=== PATIENT | male | born 1940 | race Caucasian/White ===

== ENCOUNTER 2017-02-24 14:15 | Day surgery (SDC) | payer MEDICARE ==
[~2017-02-24] VITALS: Ht 172.7 cm; Wt 88.2 kg
[~2017-02-24 14:15] MED LIST: ALLO300T2 PO; CHOL400C9 PO; CLOTRIMAZOLE TOP; ESCI20TA PO; HYDR-656 PO; KLO1T PO; KLO5T PO; LACT1CAP65 PO; MULT-36 PO; OMEP-113 PO; OXYC10TA8 PO; POTA-17 PO; SILD100T PO; SIMV20TA4 PO; TRAZ-118 PO; VALC TOP; [UNRECOGNIZED DRUG - CODE] PO
[2017-02-24 15:00] VITALS: BP 138/76; PULSE 64; RESP 16; O2SAT 94
[2017-02-24] MEDS ORDERED: ALPR0.5T8 PO (15:02)
--- NOTE | 2017-02-24 18:24 | NUR ---
Phlebotomy Patient arrived to unit with oxygen at 2L/nc. Labs drawn. HCT 30.1. Orders do not indicate phlebotomy. Patient left unit. Offered to call MD to update, patient declined.
[2017-04-13] MEDS ORDERED: vitamin d3 PO (15:20)
[2017-04-13] MEDS ORDERED: HYDR2TAB27 PO (15:20)
== END 2017-02-24 23:59 | disposition home or self-care (01) ==
LOC: MOCO 14:15
DX: E83.118 Other hemochromatosis (principal)

== ENCOUNTER 2017-05-13 15:00 | Inpatient (IN) | payer MEDICARE ==
[~2017-05-13] VITALS: Ht 172.7 cm; Wt 86.4 kg
[~2017-05-13 15:00] MED LIST changes: +ALPR0.5T8 PO; +CHOL10008 PO; -CHOL400C9 PO; -CLOTRIMAZOLE TOP; -HYDR-656 PO; +HYDR2TAB27 PO; -KLO5T PO; -LACT1CAP65 PO; -MULT-36 PO; +MULT-666 PO; -OMEP-113 PO; +OMEP20CA11 PO; -POTA-17 PO; -SILD100T PO; -VALC TOP; -[UNRECOGNIZED DRUG - CODE] PO; +vitamin d3 PO
[2017-05-13 15:12] VITALS: BP 131/63; PULSE 104; RESP 15; O2SAT 93
[2017-05-13] MEDS ORDERED: ASPI-973 PO (15:26)
--- NOTE | 2017-05-13 15:29 | ED.REPORT ---
HPI-Dyspnea / Wheezing Date of Service May 13, 2017 ED Provider: Tc Celis MD The patient is a 77 year old male w/ a hx of pulmonary fibrosis, anemia, and hemochromatosis who presents to the ED due to progressively worsening SOB for the past 3-4 days. Associated symptoms include a "thick" productive cough and intermittent, 5/10, right chest "aching" which he has never had before. He states he feels his lungs are "aching." He is slightly sob while at rest which increases with physical exertion. His reports that he was extremely short of breath after taking the trash out. Pt uses home oxygen 2 liters, saturation has been in the low 70's for the past few day. Pt denies hx of heart disease or heart failure, fever, black/bloody stool, and hematochezia. He has slept sitting up for the past few years. Dr. Shruthi Mendenhall at is his payroll consultant. He takes Aspirin every night. The patient has about 5 drinks of alcohol per day and has not gone for an extended period of time without drinking for quite some time. Nursing Notes Stated Complaint: COUGH, SOB Chief Complaint: Respiratory Complaints Nursing Notes Reviewed: Yes Allergies: Coded Allergies: meperidine (Verified Allergy, Severe, ITCHING, 05/13/17) zolpidem tartrate (Verified Allergy, Severe, goes bezerk, 05/13/17) Scheduled Allopurinol (Allopurinol) 300 Mg Tablet 300 MG PO DAILY Aspirin (Aspirin) 81 Mg Tablet 81 MG PO DAILY Cholecalciferol (Vitamin D3) (Vitamin D3) 1,000 Unit Tab.chew 1,000 UNIT PO DAILY Clonazepam (Clonazepam) 1 Mg Tab 1 MG PO DAILY Escitalopram Oxalate (Lexapro) 20 Mg Tablet 20 MG PO DAILY Multivitamin (Once Daily) 1 Each Tablet 1 EACH PO DAILY Omeprazole (Omeprazole) 20 Mg Capsule.dr 20 MG PO BID Potassium Citrate ER (Potassium Citrate ER) 10 Meq Tablet 10 MEQ PO BID Simvastatin (Simvastatin) 20 Mg Tablet 20 MG PO HS Trazodone (Trazodone) 100 Mg Tablet 300 MG PO QHSPRN Scheduled PRN Alprazolam (Alprazolam) 0.5 Mg Tablet 0.5-1 MG PO BID PRN PRN spasms Hydromorphone (Dilaudid) 2 Mg Tablet 2 MG PO DIRECTED PRN PRN Pain oxyCODONE-Acetaminophen 5-325 mg (oxyCODONE-Acetaminophen 5-325 mg) 1 Each Tablet 1 TAB PO Q6H PRN PRN For Pain General Time Seen by MD: 15:28 Chief Complaint Shortness of breath Hx Obtained From: Patient Arrived By: Walk-in Sudden in Onset?: Yes Onset Occurred: 3 days ago Symptom Duration: Since onset Location: : Chest right Quality: Aching Severity: Current: Mild Associated with: Reports: Cough Recent Healthcare: Recent doctor visit Similar Sx Previous: Yes Past Medical History Past Medical History Notes: Patient had high resolution chest CT yesterday 04/17/2015 with suspected pulmonary fibrosis Patient had normal testicle ultrasound on 04/16/2015 Past Medical History hereditary hemocrhomatosis pulmonary fibrosis anemia neophrolithiasis hyperlipidemia COPD History of cluster headaches GERD Kidney stone Anxiety Chronic back pain Colitis hiatus hernia rectus diastasis ischial bursitis medial epicondylitis Past Surgical History EGD 04/12/2015 normal Vasectomy Right toe Appendectomy Colonoscopy kidney stone removal Smoking History Former Smoker Social History Meniscectomy Kidney stone referral Appendectomy Right toe surgery Alcohol Use: >5 per day Other Social History: Good social support, , Local resident Ambulatory Status Independent Review of Systems Constitutional: Reports: Chills, Denies: Fever Respiratory: Reports: Prod cough, clear, Shortness of breath Cardiovascular: Reports: Chest pain ("aching") Complete sys rev & neg: except as marked. GI: Denies: Bloody/tarry stool, Hematochezia Physical Exam Initial Vital Signs Vital Signs (First) Date Time Temp Pulse Resp B/P Pulse Ox O2 Delivery O2 Flow Rate FiO2 05/13/17 15:12 37.0 104 15 131/63 93 Room Air 05/13/17 16:07 2 Initial VS: Reviewed General/Constitutional: Awake, Alert, Cooperative, Not toxic appearing Neck: Atraumatic, Supple Respiratory / Chest: Breath sounds = bilat scattered crackles at the bases Cardiovascular: Heart rate NL, Regular rhythm, Heart sounds NL, No gallop, No murmurs, No rubs Abdomen: Atraumatic, Soft, Non-tender Lower Extremity / Pelvis / MS: Atraumatic, Inspection NL, Full range of motion , No deformity Skin: Atraumatic, Warm, Dry Neurologic: Oriented X3, Speech NL, No motor deficits Upper Extremity / MS: Atraumatic, Inspection NL, Full range of motion, No deformity Interpretation & Diagnostics Lab Results Interpretation Result Diagram: 05/13/17 1555 05/13/17 1555 Test 05/13/17 15:55 05/13/17 17:44 05/13/17 19:03 White Blood Count 6.0th/mm3 (3.8-10.1) Red Blood Count 2.51mil/mm3 (4.40-5.80) Hemoglobin 9.9g/dL (13.8-17.2) Hematocrit 30.1% (41.0-50.0) Mean Corpuscular Volume 119.9fL (81-100) Mean Corpuscular Hemoglobin 39.4pg (27.0-35.0) Mean Corpuscular Hemoglobin Concent 32.9% (32.0-37.0) Red Cell Distribution Width 15.1% (12.3-15.4) Platelet Count 237bil/L (150-400) Neutrophils (%) (Auto) 63.1% (40-74) Lymphocytes (%) (Auto) 19.7% (14-46) Monocytes (%) (Auto) 11.2% (4-12) Eosinophils (%) (Auto) 5.0% (0-5) Basophils (%) (Auto) 0.7% (0-3) Sodium Level 139mEq/L (134-144) Potassium Level 4.5mEq/L (3.5-5.2) Chloride Level 102mEq/L (97-108) Carbon Dioxide Level 24mmol/L (18-29) Blood Urea Nitrogen 15mg/dL (8-27) Creatinine 1.16mg/dL (0.76-1.27) Estimat Glomerular Filtration Rate 65mL/min (>59) Glucose Level 121mg/dL (60-99) Calcium Level 8.7mg/dL (8.5-10.1) Total Bilirubin 0.5mg/dL (0.0-1.2) Aspartate Amino Transf (AST/SGOT) 34U/L (0-50) Alanine Aminotransferase (ALT/SGPT) 19U/L (0-44) Alkaline Phosphatase 79U/L (25-160) Total Protein 6.3g/dL (6.4-8.4) Albumin 3.5g/dL (3.4-5.0) Urine Color Yellow (YELLOW) Urine Appearance Clear (CLEAR,HAZY) Urine pH 7.0 (5.0-8.0) Urine Specific [place] 1.005 (1.003-1.035) Urine Protein Negativemg/dL (NEG,TRACE) Urine Glucose (UA) Negativemg/dL (NEGATIVE) Urine Ketones Negativemg/dL (NEGATIVE) Urine Occult Blood Negative (NEGATIVE) Urine Nitrite Negative (NEGATIVE) Urine Bilirubin Negative (NEGATIVE) Urine Urobilinogen Normalmg/dL (NORMAL) Urine Leukocyte Esterase Negative (NEGATIVE) Urine RBC 0-2/hpf (0-2) Urine WBC 0-5/hpf (0-5) Urine Epithelial Cells Occasional/hpf (NONE-MOD) Urine Crystals None seen (NONE SEEN) Urine Bacteria None/hpf (NONE-FEW) Urine Hyaline Casts None/lpf (NONE) Urine Granular Casts None seen (NONE SEEN) Urine Waxy Casts None seen (NONE SEEN) Urine Red Blood Cell Casts None seen (NONE SEEN) Urine White Blood Cell Casts None seen (NONE SEEN) Urine Mucus None seen (None Seen) Urine Trichomonas None seen (NONE SEEN) Urine Yeast None (NONE SEEN) Urinalysis Comment None Urine Culture Reflexed Not indicated Activated Partial Thromboplast Time 100.5sec (22.8-33.0) Lab Results Interpretation: Troponin 0.039 ECG Interpretation ECG Interpretation: non specific ST segment changes inferiorly and anteriorly laterally Time: 15:32 Interpreted by: ED physician Normal ECG Interpretation: Normal sinus rhythm (rate 88) ECG Interpretation: diffuse non specific ST segment changes Time: 18:24 Interpreted by: ED physician Normal ECG Interpretation: Normal sinus rhythm (80) X-Ray Chest Interpretation Chest Xray Interpretation: IMPRESSION: Marked cardiomegaly with moderate vascular congestion may be related to developing pulmonary edema. Please correlate clinically. Dictated by: Alexey Weaver M.D. on 05/13/2017 at 15:19 Approved by: Alexye Weaver M.D. on 05/13/2017 at 15:20 View: Portable Interpretation / Wet Read by: Interpret - Radiologist Re-Eval/Medical Decision Med Decision/Clinical Course 77-year-old male with pulmonary fibrosis and chronic hypoxemia presents with a cough and increasing dyspnea as well as oxygen need. He is not febrile and the normal white count chest x-ray is suggestive of congestive failure. ECG [address] segment changes however he has a positive troponin. He is not having chest pain at present. He is not dyspneic at rest. Was given aspirin 324 mg and heparin drip is initiated for non-ST elevation MO. Heparin was briefly held after his PTT came back markedly prolonged, this was a result of PTT being drawn immediately after the heparin bolus and 183 bolus specimen returned normal heparin was restarted. Cardiology consultation with been requested and he will be admitted to the hospitalist service. There is also a viral respiratory swab pending at present. Re-Evaluation/Progress #1: Time of Eval: 16:31 Re-Evaluation/Progress Note: Plan for throat swab for viral respiratory panel, lab work, and chest x-ray. Re-Evaluation/Progress #2: Time of Eval: 17:15 Re-Evaluation/Progress Note: Pt rechecked. Informed pt of labwork and elevated troponin of 0.039. Doctor recommends admission but patient wants to go home. Informed patient that he would be leaving against medical advice. Patient wants to leave and then check into the hospital tomorrow. Pt's asks to speak to the patient alone in the room. Re-Evaluation/Progress #3: Time of Eval: 18:09 Re-Evaluation/Progress Note: Pt rechecked. After discussion with family, he has decided to be admitted to the hospital. All questions addressed. Code status discussed in presence of family. DNR Consultation #1: Referral / Consult Name: Mehul Schneider MD Consulted With: Cardiology Call Returned at: 19:09 Design Maintenance Engineer: Agrees with eval, Agrees with plan Note: Case discussed. Dr. Schneider agrees with plan. Consultation #2: Referral / Consult Name: Jenelle Valle DO Consulted With: Hospitalist Call Returned at: 19:53 Design Maintenance Engineer: Agrees with eval, Agrees with plan, Accepts admit Note: Case discussed. Dr. Valle accepts admit. Counseled Regarding: Diagnosis, Lab results, Need for admission Discharge & Departure Impression: Primary Impression: Non-ST elevation myocardial infarction (NSTEMI) Disposition: ADMITTED TO HOSPITAL Discharge Condition All VS Reviewed: Yes Condition: Stable Referrals: Kimani De Leon MD (PCP) Scribe Attestation Portion of this note were transcribed by Concha Win. I, Dr. Celis, personally performed the history, physical exam, and medical decision-making: I reviewed and confirmed the accuracy for the information in the transcribed note. Signed by: samson Moreau, 05/13/17 1800 copies to: Kimani De Leon MD, Donald L MD May 13, 2017 15:29 Concha Win May 13, 2017 15:36
[2017-05-13 16:07] VITALS: BP 115/59; PULSE 88; RESP 26; O2SAT 97
[2017-05-13 16:11] LABS: BASOPHILS % (AUTO) 0.7 % (0-3); MONOCYTES % (AUTO) 11.2 % (4-12); Mean Corpuscular Hemoglobin 39.4 pg (27.0-35.0); Mean Corpuscular Volume 119.9 fL (81-100); NEUTROPHILS % (AUTO) 63.1 % (40-74); Platelet Count 237 bil/L (150-400)
--- NOTE | 2017-05-13 16:22 | DRSVH ---
PROCEDURE: X-RAY CHEST ONE VIEW, PORTABLE ([id number]) INDICATIONS: Shortness of breath TECHNIQUE: One view of the chest was acquired. COMPARISON: [facility], CR, XR CHEST 2VW, 10/18/2015, 10:54. FINDINGS: Surgical changes and devices: None. Lungs and pleura: Perihilar interstitial prominence is present. There is no lobar consolidation, lar ge effusion, or pneumothorax. Mediastinum: Mediastinal contours appear normal. Heart size is markedly enlarged. There is aortic atherosclerosis. Bones and chest wall: No suspicious bony lesions. Overlying soft tissues appear unremarkable. IMPRESSION: Marked cardiomegaly with moderate vascular congestion may be related to developing pulmon stacy edema. Please correlate clinically. Dictated by: Alexey Weaver M.D. on 05/13/2017 at 15:19 Approved by: Alexey Weaver M.D. on 05/13/2017 at 15:20
[2017-05-13 16:45] LABS: TROPONIN T 0.039 ug/L (0.0-0.011)
[2017-05-13 18:04] LABS: APPEARANCE,URINE CLEAR (CLEAR,HAZY); COLOR,URINE YELLOW (YELLOW); OCCULT BLOOD,URINE NEGATIVE (NEGATIVE); UROBILINOGEN,URINE NORMAL (NORMAL)
[2017-05-13] MEDS ORDERED: Heparin 5,000 Unit/mL Inj IVPUSH PRN (18:15)
[2017-05-13] MEDS ORDERED: Heparin 5,000 Unit/mL Inj IVPUSH ONE (18:15)
[2017-05-13] MEDS ORDERED: Heparin 25K Unit/500mL 0.45 NS 25,000 UNIT in IV Premix 1 EACH IV SCH (18:15)
[2017-05-13 18:45] VITALS: BP 125/57; PULSE 80; RESP 22; O2SAT 96
[2017-05-13] MEDS ORDERED: Ondansetron 2 mg/mL 2 mL Inj IVPUSH PRN ×2 (20:00→21:10)
[2017-05-13] MEDS ORDERED: Alum-Mag Hydrox-Simeth 30 mL Suspension PO PRN ×2 (20:00→21:10)
[2017-05-13 20:10] VITALS: BP 125/66; PULSE 82; RESP 18; O2SAT 97
[2017-05-13 20:21] VITALS: BP 120/49; PULSE 84; RESP 24; O2SAT 98
[2017-05-13] MEDS ORDERED: OXYC1TAB24 PO (20:26)
[2017-05-13] MEDS ORDERED: ESCI20TA38 PO (20:26)
[2017-05-13] MEDS ORDERED: POTA10TA19 PO (20:30)
--- NOTE | 2017-05-13 21:00 | NUR ---
Admit to PCC Pt admitted to PCC room 2019 from ED. was able to [facility]. Tolerated activity well. Pt is A&O x 3. Able to LOBO with CMS intact. Tele shows sinus arrhythmia with rate in the 80s. SpO2 high 90s on 2L NC. Denies CP, SOB, n/v/d or abdominal pain. Oriented pt to plan, floor, room, and call light. Answered all questions from family and pt. Care ongoing
[2017-05-13] MEDS ORDERED: Polyethylene Glycol (PEG) 17 Gm Powder PO PRN (21:10)
[2017-05-13] MEDS ORDERED: oxyCODONE-Acetamin 5-325 mg Tablet PO PRN (21:30)
--- NOTE | 2017-05-13 23:22 | PCM.HPMED ---
Subjective Date of Service May 13, 2017 Primary Provider: Admitting Physician: Jenelle Valle DO Primary Care Physician: Kimani De Leon MD Attending Physician: Jenelle Valle DO Admit Status: From the Emergency Department Chief Complaint: Chest pain, SOB History of Present Illness: Patient is a 77 year old male w/ a hx of idiopathic pulmonary fibrosis, anemia, and hemochromatosis who presents to the ED due to progressively worsening SOB for the past 3-4 days. Associated symptoms include a "thick" nonproductive cough and intermittent 5/10 aching chest pain in the center of his chest which he has never had before. He states he feels his lungs are "aching." He denies radiation of the chest pain to the shoulders, jaw, or back, and denies any chest pain at the current time. He states it occurs intermittently and resolves spontaneously, not associated with deep inspiration, exertion, or position. He has been slightly short of breath while at rest which increases with physical exertion, to the point of becoming extremely short of breath after taking the trash out or changing clothes. He typically uses home oxygen 2 liters. After exertion, his O2 sats have been in the low 70's for the past few days. He called his [employer]acher Dr. Mendenhall to notify her about his symptoms, and she recommended that he go to the ED. He denies hx of heart disease or heart failure, fevers, chills, night sweats, N/V/D, dizziness, fainting, black/bloody stool, and hematochezia. He has slept sitting up for the past few years. He states his previous diagnosis of COPD was preliminary before he was diagnosed with IPF, and states he does not have COPD. He takes Aspirin every night. The patient has about 5 drinks of alcohol per day and has not gone for an extended period of time without drinking for quite some time. In the ED, HR 84, RR 24, BP 120/49, O2 98 on 2L NC. Hb 9.9, Hct 30.1, MCV 119.9 , troponin 0.039. UA normal. CXR showed marked cardiomegaly with diffuse interstitial disease. Dr. Shruthi Mendenhall at is his account engineer. Review of Systems: Comprehensive review of systems conducted and was negative except for the pertinent positives listed above. Allergies Coded Allergies: meperidine (Verified Allergy, Severe, ITCHING, 05/13/17) zolpidem tartrate (Verified Allergy, Severe, goes bezerk, 05/13/17) Home Medications Allopurinol 300 mg daily Alprazolam 0.5 - 1 mg BID PRN Aspirin 81 mg daily Clonazepam 1 mg daily Escitalopram 20 mg daily Dilaudid 2 mg PO PRN pain Omeprazole 20 mg BID Percocet 5/325 q6h PRN pain Potassium citrate 10 meq BID Simvastatin 20 mg qhs Trazodone 300 mg qhs PMH Hereditary hemochromatosis Idiopathic pulmonary fibrosis Chronic anemia neophrolithiasis hyperlipidemia History of cluster headaches GERD Kidney stone Anxiety Chronic back pain Colitis hiatus hernia rectus diastasis ischial bursitis medial epicondylitis Surgical History EGD 04/12/2015 normal Vasectomy Appendectomy Colonoscopy Meniscectomy Kidney stone removal Right toe surgery Family History Father: HTN, heart problems Mother: Heart valve replacement, pacemaker, ovarian cancer Denies family history of ME, stroke, cancer, clotting disorders. Social History Hx Alcohol Use: Yes Hx Substance Use: No Hx Tobacco Use: No (Pt has smoked for 40 years, quit 15 years ago. ) Smoking Status: Former Smoker Exam Vital Signs Vital Sign - Last Date Time Temp Pulse Resp B/P Pulse Ox O2 Delivery O2 Flow Rate FiO2 05/13/17 20:21 84 24 120/49 98 Nasal Cannula 2 05/13/17 15:12 37.0 Exam General: Alert, Oriented X3, Cooperative, No acute distress Head: Normocephalic, atraumatic. External ears normal. Eyes: PERRLA, EOMI. Anicteric sclerae. Mouth: Mouth normal, Mucous membranes moist/pink Neck: Neck supple with full range of motion. No JVD. Chest& Lungs: Crackles diffusely bilaterally. Cardiovascular: Regular rate with occasional PVCs, Normal S1, Normal S2, No murmurs/rubs/gallops Abdomen: Non-tender, Non-distended, No masses, Normoactive bowel tones, Soft Musculoskeletal: Normal range of motion Extremities: No cyanosis/clubbing/edema bilaterally Neurological: Grossly neurologically intact. Normal speech Lab and Diagnostics Result Diagram: 05/13/17 5099 05/13/17 4784 Assessment & Plan Patient is a 77 year old male w/ a hx of idiopathic pulmonary fibrosis, anemia, and hemochromatosis who presents to the ED due to progressively worsening SOB for the past 3-4 days. Acute on chronic respiratory failure with hypoxia -unclear etiology on admit but most likely a/w pulm fibrosis -treatment as below Acute chest pain. Present on admission. - Patient presents with atypical chest pain, nonradiating and not associated with exertion. EKG showed nonspecific ST changes in anterior leads. He had a recent pharm stress test on 07/23/16 which was normal. Lipid panel on 04/12/17 was normal. His cardiac risk is fairly low. Well's Score 0, but pt received EPO injection last Wednesday, which has been associated with DVT/PE. - Monitor on telemetry - Heparin gtt - Continue home aspirin and simvastatin - CT angio in AM if ACS ruled out - Trend troponin Acute exacerbation of idiopathic pulmonary fibrosis - Patient had HRCT on 04/17/15 which showed diffuse interlobular septal thickening in a peripheral and basilar distribution and early honeycombing suspicious for pulmonary fibrosis. Pt was diagnosed with IPF by his account engineer Dr. Mendenhall. He now presents with worsening dyspnea on exertion , chest pain, nonproductive cough. CXR shows diffuse interstitial disease vs pulmonary edema, but pt does not show signs of fluid overload. Cardiac MRI on 10/23 showed normal LVEF 65%, no valvular abnormalities, normal heart size. CXR today now shows cardiomegaly (reviewed by admitting team). There are also no signs or symptoms of an infectious process. Likely an acute exacerbation of IPF. Will obtain echo in AM to rule out CHF exacerbation. - Repeat HRCT in AM - Prednisone 1 mg/kg daily (80 mg daily) for three days, then taper. - Continue home oxygen - Converted home omeprazole to Protonix 20 mg daily - Echocardiogram in AM - Consult pulmonology in am - request records from pulmonology Chronic macrocytic anemia - Pt received EPO last Wednesday. Hb 9.9. B12 normal on 05/05/17. - Continue to monitor CBC daily Elevated troponin, acute. - Trop 0.039 on admission. Differential ACS vs PE. - Trend troponin. History of alcohol use - Pt has history of moderate-heavy daily alcohol use. Denies hx of withdrawal. - Monitor for signs of withdrawal - Thiamine 100 mg daily Anxiety and depression - Continue home alprazolam PRN and clonazepam - Continue home escitalopram and trazodone GERD - Protonix 20 mg daily Chronic back pain - Continue home Percocet Other Chronic Conditions Hereditary hemochromatosis neophrolithiasis hyperlipidemia History of cluster headaches GERD Kidney stone Colitis hiatus hernia rectus diastasis ischial bursitis medial epicondylitis - Bowel regimen as needed - Antiemetic as needed Patient is admitted under inpatient status with expected length of stay greater than 2 midnights due to severity of presenting symptoms, risk of adverse event, and complexity of treatment plan. Resuscitation Status: DNR/DNI:Do Not Resuscitate/Intubate Attending Statement The patient was seen and examined together with house staff on 05/13/2017 and I agree with the history, exam and plan as outlined in the note above. Jayden Mustafa May 13, 2017 21:35 Jenelle Valle DO May 14, 2017 03:55
[2017-05-13] MEDS: guaiFENesin 20 mg/mL 10 mL Syrup PO PRN (23:29)
[2017-05-13] MEDS: ALPRAZolam 0.5 mg Tablet PO PRN (23:29)
[2017-05-13] MEDS: predniSONE 20 mg Tablet PO SCH (23:29)
[2017-05-13 23:40] VITALS: BP 124/55; PULSE 71; RESP 20; O2SAT 99
[2017-05-14 00:05] LABS: TROPONIN T 0.031 ug/L (0.0-0.011)
[2017-05-14 02:16] LABS: Mean Corpuscular Hemoglobin 39.3 pg (27.0-35.0); Mean Corpuscular Volume 119.2 fL (81-100); NEUTROPHILS % (AUTO) 70.2 % (40-74); Platelet Count 216 bil/L (150-400)
[2017-05-14 02:17] LABS: MONOCYTES % (AUTO) 7.2 % (4-12)
[2017-05-14 04:13] VITALS: BP 116/69; PULSE 55; RESP 19; O2SAT 96
[2017-05-14 05:36] VITALS: PULSE 64
[2017-05-14] MEDS ORDERED: Pantoprazole 20 mg ER24 Tablet PO SCH (07:30)
[2017-05-14 07:59] VITALS: PULSE 70
[2017-05-14 08:29] VITALS: PULSE 65; RESP 18; O2SAT 98
[2017-05-14] MEDS ORDERED: Potassium Citrate ER 10 mEq ER24 Tablet PO SCH (08:30)
[2017-05-14] MEDS: predniSONE 20 mg Tablet PO SCH (08:43)
--- NOTE | 2017-05-14 12:00 | NUR ---
PTT Patient denied having any pain, shortness of breath or discomfort while at rest. Up to standing position to urinated and no shortness of breath was noted on2L NC O2 with oxygen saturation at 96-98%. PTT this morning was 59.5- heparin drip was increased from 1050units/h by 25units/h to 1075units/h. next PTT in 6 h from the time change was made per cardiac heparin infusion protocol. Patient was educated increased risk for bleeding while on IV anticoagulation, on S/S of bleeding and was asked to made staff/RN aware immediately if any occur- patient and his verbalized understanding.
--- NOTE | 2017-05-14 12:01 | PCM.CHPCAR ---
Consult Subjective Date of service May 14, 2017 Date of admit May 13, 2017 at 19:36 Provider Requesting Consult Primary Care Physician Primary Care Physician: Kimani De Leon MD Chief Complaint Troponin elevation History of Present Illness 77-year-old man history of IPF, hyperlipidemia, and anemia in the setting of hemochromatosis admitted with dyspnea, pleuritic chest pain, and mild troponin elevation. Patient is seen with his . Patient states that he was in his usual state of health until about 5 days ago when he started having worsening of his shortness of breath and cough and also started having pleuritic chest pain. Denies exertional component of the chest pain. Also denies lightheadedness, or syncope. He does have fatigue that is worse now in the past 5 days. Review of Systems Review of Systems Per history of present illness and was unremarkable PMH Past Medical History # IPF # Hyperlipidemia # Hemochromatosis # Anemia explained # Alcohol abuse Scheduled Allopurinol (Allopurinol) 300 Mg Tablet 300 MG PO DAILY (Reported) Aspirin (Aspirin) 81 Mg Tablet 81 MG PO DAILY (Reported) Cholecalciferol (Vitamin D3) (Vitamin D3) 1,000 Unit Tab.chew 1,000 UNIT PO DAILY (Reported) Clonazepam (Clonazepam) 1 Mg Tab 1 MG PO DAILY (Reported) Escitalopram Oxalate (Lexapro) 20 Mg Tablet 20 MG PO DAILY (Reported) Multivitamin (Once Daily) 1 Each Tablet 1 EACH PO DAILY (Reported) Omeprazole (Omeprazole) 20 Mg Capsule.dr 20 MG PO BID (Reported) Potassium Citrate ER (Potassium Citrate ER) 10 Meq Tablet 10 MEQ PO BID ( Reported) Simvastatin (Simvastatin) 20 Mg Tablet 20 MG PO HS (Reported) Trazodone (Trazodone) 100 Mg Tablet 300 MG PO QHSPRN (Reported) Scheduled PRN Alprazolam (Alprazolam) 0.5 Mg Tablet 0.5-1 MG PO BID PRN PRN spasms (Reported) Hydromorphone (Dilaudid) 2 Mg Tablet 2 MG PO DIRECTED PRN PRN Pain (Reported ) oxyCODONE-Acetaminophen 5-325 mg (oxyCODONE-Acetaminophen 5-325 mg) 1 Each Tablet 1 TAB PO Q6H PRN PRN For Pain (Reported) Discontinued Medications ([vitamin d3]) 1,000 UNITS PO DAILY (Reported) oxyCODONE (oxyCODONE) 10 Mg Tablet 0.5-1 TAB PO [id number] PRN PRN For Pain ( Reported) Current Inpatient Medications Current Medications Heparin Sodium (Porcine) Per Protocol for a... PRN PRN IVPUSH Last administered on 05/14/17 02:14; Admin Dose 1,000 UNIT; Start 05/13/17 at 18:15 Al Hydrox/Mg Hydrox/Simethicone 30 ml Q6 PRN PO; Start 05/13/17 at 20:00; Stop 05/13/17 at 21:30; Status DC Ondansetron HCl Dose range: 4 mg to 8 mg Q4H PRN IVPUSH; Start 05/13/17 at 20:00 ; Stop 05/13/17 at 21:30; Status DC Acetaminophen 975 mg Q6H PRN PO; Start 05/13/17 at 20:00 Al Hydrox/Mg Hydrox/Simethicone 30 ml Q6H PRN PO; Start 05/13/17 at 21:10 Ondansetron HCl 4 to 8 mg Q4H PRN IVPUSH; Start 05/13/17 at 21:10 Senna 17.2 mg BID PRN PO; Start 05/13/17 at 21:10 Polyethylene Glycol 17 gm DAILY PRN PO; Start 05/13/17 at 21:10 Allopurinol 300 mg DAILY PO Last administered on 05/14/17 08:42; Admin Dose 300 MG; Start 05/14/17 at 08:30 Alprazolam 0.5-1 MG BID PRN PO Last administered on 05/13/17 23:29; Admin Dose 0.5 MG; Start 05/13/17 at 21:30 Aspirin 81 mg DAILY PO Last administered on 05/14/17 08:42; Admin Dose 81 MG; Start 05/14/17 at 08:30 Clonazepam 1 mg DAILY PO Last administered on 05/14/17 08:42; Admin Dose 1 MG; Start 05/14/17 at 08:30 Oxycodone/ Acetaminophen 1 tab Q6H PRN PO; Start 05/13/17 at 21:30 Potassium Citrate 10 meq BIDWM PO Last administered on 05/14/17 08:43; Admin Dose 10 MEQ; Start 05/14/17 at 08:30 Trazodone HCl 300 mg HS PRN PO Last administered on 05/13/17 23:30; Admin Dose 300 MG; Start 05/13/17 at 21:30 Escitalopram Oxalate 20 mg DAILY PO Last administered on 05/14/17 08:43; Admin Dose 20 MG; Start 05/14/17 at 08:30 Pantoprazole 20 mg DAILYAC PO Last administered on 05/14/17 08:43; Admin Dose 20 MG; Start 05/14/17 at 07:30 Prednisone 80 mg DAILYWM PO Last administered on 05/14/17 08:43; Admin Dose 80 MG; Start 05/13/17 at 22:49 Thiamine HCl 100 mg DAILY PO Last administered on 05/14/17 08:42; Admin Dose 100 MG; Start 05/13/17 at 23:05 Guaifenesin 200 mg Q6H PRN PO Last administered on 05/13/17 23:29; Admin Dose 200 MG; Start 05/13/17 at 23:15 Allergies: Coded Allergies: meperidine (Verified Allergy, Severe, ITCHING, 05/13/17) zolpidem tartrate (Verified Allergy, Severe, goes bezerk, 05/13/17) Family History Family History Daughter is healthy Social History Hx Alcohol Use: YesAlcoholic Drinks Per Day: 2-3Hx Substance Use: NoHx Tobacco Use: No (Pt has smoked for 40 years, quit 15 years ago. ) Smoking Status: Former Smoker Exam Vital Signs Vital Sign - Last Date Time Temp Pulse Resp B/P Pulse Ox O2 Delivery O2 Flow Rate FiO2 05/14/17 08:29 Supplement Oxygen 05/14/17 08:29 36.9 65 18 98 2.00 Intake and Output 05/13/17 05/13/17 05/14/17 Cumulative From/Thru 14:59 22:59 06:59 05/13/17 15:12 - 05/14/17 04:13 Intake Total 240 ml 240 ml Output Total 790 ml 790 ml Balance -550 ml -550 ml Intake Oral 240 ml 240 ml Output Urine Total 790 ml 790 ml Objective General appearance: No apparent distress, well-nourished, pleasant, cooperative HEET: Normocephalic atraumatic, no scleral icterus, tongue midline, mucous membranes moist Neck: supple Cardiovascular: RRR, normal S1 and normal S2, no murmurs/rubs/gallops, PMI nondisplaced, no JVD, no peripheral edema Respiratory: Good aeration, CTAB Abdomen: Soft, nontender, nondistended, + bowel sounds Neuro: Alert, no facial droop, tongue midline, no gross motor deficits Psych: appropriate affect Lab and Diagnostics Labs Troponin 0.39 -> normal today Result Diagram: 05/14/1720905/14/17209 X-Rays, CTs and MRIs Echo today: 1) Normal left ventricular thickness, size, wall mtion, and systolic function ( EF 60-65%). 2) Grossly, normal right ventricular size and function. 3) No significant valvular abnormaltiies. 4) PA pressures can not be estimated due to lack of tricuspid regurgitation. 5) Compared to the echo done 06/16/2016, LV function has improved from mildly reduced to normal on today's study. 12-lead ECG ECG on admission shows sinus rhythm with PACs and no significant ST T changes Assessment & Plan Assessment 77-year-old man history of IPF, hyperlipidemia, and anemia in the setting of hemochromatosis admitted with dyspnea, pleuritic chest pain, and mild troponin elevation: # Troponin elevation: Patient had a mild troponin elevation in the setting of dyspnea and pleuritic chest pain. Troponins have normalized now. His echo shows normal function with no wall motion abnormalities. Given the clinical scenario, I think the troponin elevation is more related to demand ischemia than thrombotic event. I educated the patient about his condition and answered his questions. Recommendations as below: - Continue aspirin 81mg daily - Okay to stop heparin gtt - Start atorvastatin 40mg qhs - Ischemia evaluation as outpatient (in one week) through PCP # Dyspnea: Patient has chronic dyspnea that has worsened over the past 5 days or so. It is also associated cough. Etiology of this exacerbation is unclear but it could be atypical pneumonia, pulmonary embolism, or worsening of the underlying disease process. Patient is off oxygen at rest now feels back to his baseline but I have asked him to do a quick ambulation with home oxygen settings in the corridor. Will defer management to primary team if dyspnea is not back to baseline # HLD: statin as above Resuscitation Status: DNR/DNI:Do Not Resuscitate/Intubate Naty Culp MD May 14, 2017 12:01
[2017-05-14 12:04] VITALS: BP 119/47; PULSE 74; RESP 19; O2SAT 93
[2017-05-14] MEDS: guaiFENesin 20 mg/mL 10 mL Syrup PO PRN (12:15)
[2017-05-14] MEDS: ALPRAZolam 0.5 mg Tablet PO PRN (13:53)
--- NOTE | 2017-05-14 14:29 | PCM.DIMED ---
Xander Calderon DO 05/14/17 1426: Discharge Instructions Date of Service May 14, 2017 Dates of Hospitalization May 13, 2017 at 19:36 Discharge Diagnosis Discharge Diagnosis Acute on chronic respiratory failure with hypoxia NSTEMI. Present on admission. Acute exacerbation of idiopathic pulmonary fibrosis Chronic macrocytic anemia History of alcohol use Anxiety and depression GERD Chronic back pain Hereditary hemochromatosis Hyperlipidemia History of cluster headaches Medication Instructions Additional med instructions Take Prednisone 20mg as followed: - Take 4 tablets by oral route daily for the next 2 days (you got a dose in the hospital) - Take 3 tablets daily for 3 days. - Take 2 tablets daily for 3 days. - Take 1 tablets daily for 3 days. Diet Discharge Diet: Heart Healthy Call your provider Call your provider for: Fever or Chills, Shortness of breath, Chest pain, Weakness (unilateral) Patient Instructions Patient Instructions - Your shortness of breath could be due to exacerbation of the lung disease ( Idiopathic pulmonary fibrosis) since your symptoms improve rapidly on the steroid. - Please continue to take the Prednisone with tapering dose as directed. - Follow up with your fire control technician b at in 3-4 weeks. - Your cardiac marker was a little elevated on admission, but it has normalized. - Our pharmacy benefit manager recommended that you follow up with your regular doctor for a cardiac stress test. Please call Dr. De Leon for an appointment in 1-2 weeks. - During the hospital stay, there was no sign or symptoms of infection. - If you develop worsening shortness of breath, cough, chest pain, fever, chills , dizziness, nausea, or vomiting, please seek medical care immediately. Follow-up Provider: Kimani De Leon MD Follow-up with PCP in: 1 week Provider: OTHER,PHYSICIAN Follow-up in: 4 weeks (Dr. Mendenhall - pulmonology) Douglas Xavier MD 05/14/17 1748: Discharge Instructions Attending's Statement The patient was seen and examined with staff. Agree with all attached documentation. Xander Calderon DO May 14, 2017 14:26 Douglas Xavier MD May 14, 2017 17:48
[2017-05-14] MEDS ORDERED: PRED-508 PO (14:31)
--- NOTE | 2017-05-14 14:42 | NUR ---
Activity Patient stated feeling anxious and stated that usually he takes antianxiety medications 2-3 times a day at home. PRN dose of Xanax 1mf PO was given- patient was able to relax after about 30 Patient ambulated one time around CCU/PCC hallways with 2L nasal prongs O2 and oxygen saturation remained 92-93%. Patient stated that at home he uses 2-3L O2 for ambulation/activity. Patient denied having shortness of breath and did not appeared having any difficulty breathing during and after the ambulation.
--- NOTE | 2017-05-14 15:36 | NUR ---
Discharge Patient discharged home in stable condition. Patient discharged in a wheelchair with oxygen saturation 92-93% on RA while at rest and with some non-strenuous activates. Patient has oxygen concentrator at home but told his to not to bring it. It was patients choice to not to use oxygen for his trip home with his oxygen level being stable. Patient denied having any difficulty breathing- no shortness of breath was noted. Patient and his verbalized understanding of verbal and written discharge home instructions regarding medications, oxygen safety and use, S/S to call MD and to call 911, follow up appointments. IV was removed intact prior to discharge. Patient was accompanied by staff and transported in a wheel chair
--- NOTE | 2017-05-14 15:43 | NUR ---
Social Work: Multidisciplinary Rounds/Attempted CD and Initial Assessment/Discharge D: Per EMR review, pt is a 77 year old male admitted for Non ST Evevated [place]. Pt is Medicare with [employer] Supplement. PCP is Kimani De Leon MD. NOK Is Katerin Padron. AD requested from admit RN. RA Score not entered at this time. Pt discussed in MD rounds. Pt has a history of ETOH use and consumes approximately 5 etoh drinks daily. Per bedside RN pt expresses no desires to detox and is asking about consuming ETOH during admission. MD will consider whether to order ETOH for the pt during admit versus detox. CD order placed. SIDER MECHANIC attempted to meet with the patient at bedside. Pt states he is being discharge and does not wish to speak with SIDER MECHANIC to complete CD assessment or Initial Assessment. Pt simply states that he wishes to discharge home and has no concerns about his ability to care for self. Pt states he is I with ADLs and uses no DME. Pt declined further info from SIDER MECHANIC including OP CD resources, senior resource guide and "You Discharge Planning Guide." A: Pt who is I at baseline and lives in [place] with his . P: Pt to discharge home with no further sw needs. BRET Cooper
--- NOTE | 2017-05-14 16:39 | DRSVH ---
[facility] [address] [place] [address] Echocardiogram Report Name: ANATOLIY LUCERO MStudy Aguilar e: 05/14/2017 Height: 68 in Hospital Exam Location: [facility] Weight: 19 0 lb Gender: Male BSA: 2.0 m2 : 1940 Age: 77 yrs BP: 116/69 mmHg Reason For Study: CHEST PAIN, SOB Ordering Physician: Rabia Saenzist Performed By: Chi Whitlock Referring Physician: MICHELINE RAMOS Interpretation Summary 1) Normal left ventricular thickness, size, wall mtion, and systolic function (EF 60-65%). 2) Grossly, normal right ventricular size and function. 3) No significant valvular abnormaltiies. 4) PA pressures can not be estimated due to lack of tricuspid regurgitation. 5) Compared to the echo done 06/16/2016, LV function has improved from mildly reduced to normal on today's study. Procedure: A two-dimensional transthoracic echocardiogram with color flow and Doppler was performed. The study quality was technically difficult. A contrast injection of Definity was performed to improve assessment of LV function. Comparison is made with the echocardiogram of 06/16/16. The patient was in normal sinus rhythm during the exam. Left Ventricle: The left ventricle is normal in size. There is normal left ventricular wall thickness. The ejection fraction is estimated to be 60-65%. Left ventricular systolic function is normal. There are no obvious focal wall motion abnormalities noted but poor endocardial definition reduces the sensitivity for the detection of such. Right Ventricle: The right ventricle grossly appears normal in size with probable normal systolic function. Atria: Both atria are normal in size. The interatrial septum is intact with no evidence for an atrial septal defect. Mitral Valve: The mitral valve is grossly normal. There is no mitral regurgitation noted. Aortic Valve: The aortic valve is grossly normal. There is no aortic valve stenosis. No aortic regurgitation is present. Tricuspid Valve: The tricuspid valve is not well visualized, but is grossly normal. Pulmonary artery pressures cannot be estimated because of the lack of a measurable TR jet velocity. Pulmonic Valve: The pulmonic valve leaflets are thin and pliable; valve motion is normal. There is a trace or physiologic amount of pulmonic regurgitation. Great Vessels: The aortic root is normal size. The dimensions of the ascending aorta are normal. The pulmonary artery is normal size. The IVC is dilated (diameter is greater than 2.1 cm) yet it collapses greater than 50% with a sniff. This suggests a right atrial pressure of 8 mm Hg. Pericardium/ Pleura There is no pericardial effusion. There is an anterior echo-free space consistent with a fat pad. There is no pleural effusion. MMode/2D Measurements & Calculations LVIDd: 4.9 cm RA long axis LVOT diam LVIDs: 3.0 cm LA A2 area: 19.3 cm FS: 38.0 % LA A4 area: 18.9 cm RA area AoV Opening EPSS: 0.62 cm LA length (vol): 6.2 cm IVSd: 0.95 cm LA vol: 50.0 ml : 14.1 cm Ao root diam LVPWd: 0.96 cm LA vol index RA vol : 29.8 ml asc Aorta RA Diam: 3.2 cm IVC diam: 2.3 cm : 14.9 mm2 LV cochran. diameter/BSA LV sys. diameter/BSA (cm/m^2): 2.4 (cm/m^2): 1.5 Doppler Measurements & Calculations Ao V2 max MV E max tyrese MV E/A: 0.94 MV dec time : 126.7 cm/sec : 70.6 cm/sec Med Peak E' Tyrese : 0.22 sec Ao max P.4 mmHgMV A max tyrese Ao mean PG : 75.3 cm/sec E/E' med: 12.0 Lat Peak E' Tyrese LVOT Max Tyrese : 103.7 cm/sec E/E' lat: 9.3 LAZ(I,D): 3.5 cm E/e' average: 10.6 sev ratio: 0.84 Ao V2 mean LV V1 max PG LAZ indexed to BSA : 81.1 cm/sec (cm^2/m^2): 1.8 Ao V2 VTI: 24.7 cm LV V1 VTI: 20.9 cm LAZ(V,D): 3.4 cm2 Reading Physician:04:38 PM
--- NOTE | 2017-05-14 18:37 | PCM.DC.MED ---
Discharge Summary Date of Service May 14, 2017 Dates of Hospitalization Date of Hospital Admission May 13, 2017 at 19:36 Date of Discharge: May 14, 2017 Providers: Admitting Physician: Jenelle Valle DO Primary Care Physician: Kimani De Leon MD Attending Physician: Douglas Xavier MD Diagnosis at Time of Discharge Diagnosis at Time of Discharge Acute on chronic respiratory failure with hypoxia NSTEMI. Present on admission. Acute exacerbation of idiopathic pulmonary fibrosis Chronic macrocytic anemia History of alcohol use Anxiety and depression GERD Chronic back pain Hereditary hemochromatosis Hyperlipidemia History of cluster headaches Procedures XRay, CTs & MRIs PROCEDURE: X-RAY CHEST ONE VIEW, PORTABLE IMPRESSION: Marked cardiomegaly with moderate vascular congestion may be related to developing pulmonary edema. Please correlate clinically. Dictated by: Alexey Weaver M.D. on 05/13/2017 at 15:19 ECG [address] segment changes inferiorly and anteriorly laterally Brief History Patient is a 77 year old male w/ a hx of idiopathic pulmonary fibrosis, anemia, and hemochromatosis who presents to the ED due to progressively worsening SOB for the past 3-4 days. Associated symptoms include a "thick" nonproductive cough and intermittent 5/10 aching chest pain in the center of his chest which he has never had before. He states he feels his lungs are "aching." He denies radiation of the chest pain to the shoulders, jaw, or back, and denies any chest pain at the current time. He states it occurs intermittently and resolves spontaneously, not associated with deep inspiration, exertion, or position. He has been slightly short of breath while at rest which increases with physical exertion, to the point of becoming extremely short of breath after taking the trash out or changing clothes. He typically uses home oxygen 2 liters. After exertion, his O2 sats have been in the low 70's for the past few days. He called his Valet Parker Dr. Mendenhall to notify her about his symptoms, and she recommended that he go to the ED. He denies hx of heart disease or heart failure, fevers, chills, night sweats, N/V/D, dizziness, fainting, black/bloody stool, and hematochezia. He has slept sitting up for the past few years. He states his previous diagnosis of COPD was preliminary before he was diagnosed with IPF, and states he does not have COPD. He takes Aspirin every night. The patient has about 5 drinks of alcohol per day and has not gone for an extended period of time without drinking for quite some time. In the ED, HR 84, RR 24, BP 120/49, O2 98 on 2L NC. Hb 9.9, Hct 30.1, MCV 119.9 , troponin 0.039. UA normal. CXR showed marked cardiomegaly with diffuse interstitial disease. Dr. Shruthi Mendenhall at is his candy attendant. Hospital Course Patient is a 77 year old male w/ a hx of idiopathic pulmonary fibrosis, anemia, and hemochromatosis who presents to the ED due to progressively worsening SOB for the past 3-4 days. Acute on chronic respiratory failure with hypoxia, improved. -unclear etiology on admit but most likely a/w pulm fibrosis -treatment as below -Wells' score of 3 for symptoms, which is low risk for PE. -At discharge, patient reported symptoms returned back to baseline. He saturated well 92-94% at room air at rest and on 2L with exertion. Acute chest pain. Present on admission. - Patient presents with atypical chest pain, nonradiating and not associated with exertion. EKG showed nonspecific ST changes in anterior leads. He had a recent pharm stress test on 07/23/16 which was normal. Lipid panel on 04/12/17 was normal. His cardiac risk is fairly low. Well's Score 0, but pt received EPO injection last Wednesday, which has been associated with DVT/PE. - Monitor on telemetry - Heparin gtt - Continue home aspirin and simvastatin - CT angio in AM if ACS ruled out - Troponin trending down and normalized at discharge. - Dr. Smith (Cardio) saw the patient and recommended outpatient stress test. Patient will need to follow up with is PCP in 1-2 weeks. Acute exacerbation of idiopathic pulmonary fibrosis - Patient had HRCT on 04/17/15 which showed diffuse interlobular septal thickening in a peripheral and basilar distribution and early honeycombing suspicious for pulmonary fibrosis. Pt was diagnosed with IPF by his candy attendant Dr. Mendenhall. He now presents with worsening dyspnea on exertion , chest pain, nonproductive cough. CXR shows diffuse interstitial disease vs pulmonary edema, but pt does not show signs of fluid overload. Cardiac MRI on 10/23 showed normal LVEF 65%, no valvular abnormalities, normal heart size. CXR today now shows cardiomegaly (reviewed by admitting team). There are also no signs or symptoms of an infectious process. Likely an acute exacerbation of IPF. - Prednisone 1 mg/kg daily (80 mg daily) for three days, then taper. - Continue home oxygen - Converted home omeprazole to Protonix 20 mg daily Chronic macrocytic anemia - Pt received EPO last Wednesday. Hb 9.9. B12 normal on 05/05/17. - Continue to monitor CBC daily Elevated troponin, acute. - Trop 0.039 on admission. Differential ACS vs PE. - Troponin trended down. History of alcohol use - Pt has history of moderate-heavy daily alcohol use. Denies hx of withdrawal. - Monitor for signs of withdrawal - Thiamine 100 mg daily Anxiety and depression - Continue home alprazolam PRN and clonazepam - Continue home escitalopram and trazodone GERD - Protonix 20 mg daily Chronic back pain - Continue home Percocet Other Chronic Conditions Hereditary hemochromatosis neophrolithiasis hyperlipidemia History of cluster headaches Kidney stone Colitis hiatus hernia rectus diastasis ischial bursitis medial epicondylitis - Bowel regimen as needed - Antiemetic as needed Patient is admitted under inpatient status with expected length of stay greater than 2 midnights due to severity of presenting symptoms, risk of adverse event, and complexity of treatment plan. Exam Vital Signs (Last) Date Time Temp Pulse Resp B/P Pulse Ox O2 Delivery O2 Flow Rate FiO2 05/14/17 12:04 36.8 74 19 119/47 93 Room Air 05/14/17 08:29 2.00 Exam General: Alert, Oriented X3, Cooperative, No acute distress Head: Normocephalic, atraumatic. External ears normal. Eyes: PERRLA, EOMI. Anicteric sclerae. Mouth: Mouth normal, Mucous membranes moist/pink Neck: Neck supple with full range of motion. No JVD. Chest& Lungs: Crackles diffusely bilaterally. Cardiovascular: Regular rate with occasional PVCs, Normal S1, Normal S2, No murmurs/rubs/gallops Abdomen: Non-tender, Non-distended, No masses, Normoactive bowel tones, Soft Musculoskeletal: Normal range of motion Extremities: No cyanosis/clubbing/edema bilaterally Neurological: Grossly neurologically intact. Normal speech Test 05/13/17 17:44 05/13/17 23:20 05/14/17 02:10 05/14/17 08:22 Urine Color Yellow (YELLOW) Urine Appearance Clear (CLEAR,HAZY) Urine pH 7.0 (5.0-8.0) Urine Specific [place] 1.005 (1.003-1.035) Urine Protein Negativemg/dL (NEG,TRACE) Urine Glucose (UA) Negativemg/dL (NEGATIVE) Urine Ketones Negativemg/dL (NEGATIVE) Urine Occult Blood Negative (NEGATIVE) Urine Nitrite Negative (NEGATIVE) Urine Bilirubin Negative (NEGATIVE) Urine Urobilinogen Normalmg/dL (NORMAL) Urine Leukocyte Esterase Negative (NEGATIVE) Urine RBC 0-2/hpf (0-2) Urine WBC 0-5/hpf (0-5) Urine Epithelial Cells Occasional/hpf (NONE-MOD) Urine Crystals None seen (NONE SEEN) Urine Bacteria None/hpf (NONE-FEW) Urine Hyaline Casts None/lpf (NONE) Urine Granular Casts None seen (NONE SEEN) Urine Waxy Casts None seen (NONE SEEN) Urine Red Blood Cell Casts None seen (NONE SEEN) Urine White Blood Cell Casts None seen (NONE SEEN) Urine Mucus None seen (None Seen) Urine Trichomonas None seen (NONE SEEN) Urine Yeast None (NONE SEEN) Urinalysis Comment None Urine Culture Reflexed Not indicated Pro-B-Type Natriuretic Peptide 200.5pg/mL (0-486) White Blood Count 5.1th/mm3 (3.8-10.1) Red Blood Count 2.39mil/mm3 (4.40-5.80) Hemoglobin 9.4g/dL (13.8-17.2) Hematocrit 28.5% (41.0-50.0) Mean Corpuscular Volume 119.2fL (81-100) Mean Corpuscular Hemoglobin 39.3pg (27.0-35.0) Mean Corpuscular Hemoglobin Concent 33.0% (32.0-37.0) Red Cell Distribution Width 15.3% (12.3-15.4) Platelet Count 216bil/L (150-400) Neutrophils (%) (Auto) 70.2% (40-74) Lymphocytes (%) (Auto) 14.4% (14-46) Monocytes (%) (Auto) 7.2% (4-12) Eosinophils (%) (Auto) 7.0% (0-5) Basophils (%) (Auto) 1.0% (0-3) Sodium Level 138mEq/L (134-144) Potassium Level 4.3mEq/L (3.5-5.2) Chloride Level 102mEq/L (97-108) Carbon Dioxide Level 21mmol/L (18-29) Blood Urea Nitrogen 14mg/dL (8-27) Creatinine 1.14mg/dL (0.76-1.27) Estimat Glomerular Filtration Rate 67mL/min (>59) Glucose Level 150mg/dL (60-99) Calcium Level 8.5mg/dL (8.5-10.1) Total Bilirubin 0.5mg/dL (0.0-1.2) Aspartate Amino Transf (AST/SGOT) 28U/L (0-50) Alanine Aminotransferase (ALT/SGPT) 17U/L (0-44) Alkaline Phosphatase 72U/L (25-160) Total Protein 5.9g/dL (6.4-8.4) Albumin 3.1g/dL (3.4-5.0) Troponin T 0.010ug/L (0.0-0.011) Test 05/14/17 12:19 Activated Partial Thromboplast Time 55.0sec (22.8-33.0) Discharge Medications Discharge Medications Allopurinol (Allopurinol) 300 Mg Tablet 300 MG PO DAILY (Reported) Aspirin (Aspirin) 81 Mg Tablet 81 MG PO DAILY (Reported) Cholecalciferol (Vitamin D3) (Vitamin D3) 1,000 Unit Tab.chew 1,000 UNIT PO DAILY (Reported) Clonazepam (Clonazepam) 1 Mg Tab 1 MG PO DAILY (Reported) Escitalopram Oxalate (Lexapro) 20 Mg Tablet 20 MG PO DAILY (Reported) Multivitamin (Once Daily) 1 Each Tablet 1 EACH PO DAILY (Reported) Omeprazole (Omeprazole) 20 Mg Capsule.dr 20 MG PO BID (Reported) Potassium Citrate ER (Potassium Citrate ER) 10 Meq Tablet 10 MEQ PO BID ( Reported) Prednisone (Deltasone) 20 Mg Tablet 80 MG PO DAILYWM Prescribed by: STEPHANIE BUTT DO Simvastatin (Simvastatin) 20 Mg Tablet 20 MG PO HS (Reported) Trazodone (Trazodone) 100 Mg Tablet 300 MG PO QHSPRN (Reported) As needed Alprazolam (Alprazolam) 0.5 Mg Tablet 0.5-1 MG PO BID PRN PRN spasms (Reported) Hydromorphone (Dilaudid) 2 Mg Tablet 2 MG PO DIRECTED PRN PRN Pain (Reported ) oxyCODONE-Acetaminophen 5-325 mg (oxyCODONE-Acetaminophen 5-325 mg) 1 Each Tablet 1 TAB PO Q6H PRN PRN For Pain (Reported) Additional med instructions Take Prednisone 20mg as followed: - Take 4 tablets by oral route daily for the next 2 days (you got a dose in the hospital) - Take 3 tablets daily for 3 days. - Take 2 tablets daily for 3 days. - Take 1 tablets daily for 3 days. Followup Plan Disposition: Home Discharge Diet: Heart Healthy Discharge Activity: Limited until seen by PCP Patient Instructions - Your shortness of breath could be due to exacerbation of the lung disease ( Idiopathic pulmonary fibrosis) since your symptoms improve rapidly on the steroid. - Please continue to take the Prednisone with tapering dose as directed. - Follow up with your candy attendant at in 3-4 weeks. - Your cardiac marker was a little elevated on admission, but it has normalized. - Our manager social responsibility recommended that you follow up with your regular doctor for a cardiac stress test. Please call Dr. De Leon for an appointment in 1-2 weeks. - During the hospital stay, there was no sign or symptoms of infection. - If you develop worsening shortness of breath, cough, chest pain, fever, chills , dizziness, nausea, or vomiting, please seek medical care immediately. Follow-up Provider: Kimani De Leon MD Follow-up with PCP in: 1 week Provider: OTHER,PHYSICIAN Follow-up in: 4 weeks (Dr. Mendenhall - pulmonology) Time spent 60 minutes Attending Statement The patient was seen and examined with staff. Agree with all attached documentation. copies to: Kimani De Leon MD, Ngochanh H DO May 14, 2017 18:37 Douglas Xavier MD May 16, 2017 07:45
== END 2017-05-14 15:20 | disposition home or self-care (01) | DRG 196 ==
LOC: SED 15:00 → PCC 19:36
PROVIDERS: ADMIT Internal Medicine; ATTEND Hospitalist
DX: J84.10 Pulmonary fibrosis, unspecified (principal); J96.21 Acute and chronic respiratory failure with hypoxia; I21.4 Non-ST elevation (NSTEMI) myocardial infarction; Z99.81 Dependence on supplemental oxygen; D64.89 Other specified anemias; Z79.82 Long term (current) use of aspirin; Z87.891 Personal history of nicotine dependence; D53.9 Nutritional anemia, unspecified; F32.9 Major depressive disorder, single episode, unspecified; F41.9 Anxiety disorder, unspecified; K21.9 Gastro-esophageal reflux disease without esophagitis; M54.9 Dorsalgia, unspecified; E83.110 Hereditary hemochromatosis; Z66 Do not resuscitate; Z79.52 Long term (current) use of systemic steroids; E78.5 Hyperlipidemia, unspecified